=== PATIENT | male | born 1950 | race Caucasian/White ===

== ENCOUNTER 2024-10-08 22:32 | Emergency (ER) | payer MEDICARE, SELFPAY ==
[2024-10-08 22:32] VITALS: BP 137/72; PULSE 76; RESP 19; TEMP 36.7; O2SAT 97; BMI 25.7
--- NOTE | 2024-10-08 22:38 | EKG12_ITS ---
Test Reason : CP Blood Pressure : */* mmHG Vent. Rate : 75 BPM Atrial Rate : 60 BPM P-R Int : 204 ms QRS Dur : 56 ms QT Int : 394 ms P-R-T Axes : 7 -9 -11 degrees QTcB Int : 439 ms Sinus rhythm with frequent Premature ventricular complexes Inferior infarct , age undetermined Abnormal ECG Confirmed by RACHAEL ORANTES, FREDERICK ([id number]), acquisition editor CLAIRE HAWKINS ([id number]) on 10/10/2024 9:20:53 AM Referred By: LORENA Confirmed By: FREDERICK CANO MD
--- NOTE | 2024-10-08 22:39 | ED.VIS.CHEST ---
HPI History of Present Illness Chief Complaint: Chest Pain Informant: patient, family and EMS Narrative Narrative: 74-year-old male states he was sitting playing cards tonight about 1.5 hours or less prior to arrival started having squeezing left-sided lower chest discomfort. He and family state he probably had it for 15 minutes or so before he even said anything. It was constant nonpleuritic no associated symptoms. Never had this before. 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 He is on warfarin for that. He is not sure why he is on warfarin and not a newer medication, but he has never had a mechanical valve/heart surgery. EMS gave him aspirin 324 mg and 2 nitroglycerin and as a result of this, his pain is resolved. States he feels better now. [facility] Medical History HTN (hypertension) Afib Home Medications ?Medication ?Instructions ?Recorded ?Last Taken ?Type ascorbic acid (vitamin C) 500 mg 500 mg PO BID 10/08/24 Unknown History capsule diltiazem HCl 120 mg 120 mg PO DAILY 10/08/24 Unknown History capsule,extended release 12 hr (Cardizem SR) ergocalciferol (vitamin D2) 1,250 1,250 mcg PO Q14D 10/08/24 Unknown History mcg (50,000 unit) capsule (Vitamin D2) lovastatin 20 mg tablet 20 mg PO DAILY 10/08/24 Unknown History metoprolol succinate 50 mg 100 mg PO QDAY 10/08/24 Unknown History tablet,extended release 24 hr multivitamin (Daily Multi-Vitamin 2 tab PO DAILY 10/08/24 Unknown History tablet) nitroglycerin 0.4 mg sublingual 0.4 mg sublingual Q5M 10/08/24 Unknown History tablet warfarin 5 mg tablet 10 mg PO .COMPLEX 10/08/24 Unknown History Allergy/AdvReac Type Severity Reaction Status Date / Time No Known Allergies Allergy Verified 10/08/24 22:35 Social History Smoking Status: Former smoker ROS ROS ED Constitutional Constitutional ED: Denies chills or fever(s) Eyes Eyes: Denies change in vision or diplopia ENT ENT ED: Denies rhinorrhea or sore throat Cardiovascular Cardiovascular: Reports chest pain; Denies lightheadedness, palpitations or syncope Respiratory/Chest Respiratory/Chest: Denies cough or dyspnea Gastrointestinal Gastrointestinal: Denies abdominal pain, diarrhea, nausea or vomiting Genitourinary Genitourinary ED: Denies dysuria or hematuria Musculoskeletal Musculoskeletal: Denies back pain or neck pain Integumentary Denies abscess or rash Neurologic Neurologic: Denies headache(s), paresthesias or weakness Psychiatric Psychiatric: Denies anxiety or suicidal thoughts EXAM Physical Exam Const Vital Signs: 10/08/24 22:32 10/08/24 22:38 10/08/24 22:39 Temperature 98.1 F Temperature Source Oral Pulse Rate 76 Respiratory Rate 19 H Respiratory Pattern Normal Blood Pressure 137/72 H Blood Pressure Mean 93 Pulse Ox 97 Oxygen Delivery Method Room Air Room Air 10/08/24 22:47 10/08/24 23:32 10/08/24 23:55 Temperature Temperature Source Pulse Rate 68 66 67 Respiratory Rate 16 16 Respiratory Pattern Blood Pressure 137/72 H 120/61 121/61 H Blood Pressure Mean 80 81 Pulse Ox 97 97 Oxygen Delivery Method Room Air Room Air 10/09/24 01:00 Temperature Temperature Source Pulse Rate 68 Respiratory Rate 16 Respiratory Pattern Blood Pressure 141/54 H Blood Pressure Mean 83 Pulse Ox 98 Oxygen Delivery Method Room Air Positive well nourished and well developed General Appearance ED: well developed and NAD HEENT Reports moist mucous membranes normocephalic and atraumatic Eyes PERRL and EOMs intact bilaterally Neck full ROM and supple Chest Wall inspection of chest normal and palpation of chest normal Resp normal respiratory effort and clear to auscultation bilaterally Cardio regular rate, regular rhythm and no murmurs Peripheral Pulses: pulses 2+ throughout and radial pulses present bilateral 2+ GI non-tender and non-distended Auscultation: normoactive bowel sounds Palpation: soft Back/Spine no CVA tenderness General Back: other FROM Extremity normal to inspection General Extremety ED: Negative for edema, pulses abnormal or tenderness General Extremity: Negative for edema or pulses abnormal Neuro oriented x3, CN's II-XII intact bilaterally and no sensory deficits noted Sensorium / Orientation: awake and alert Motor Exam: strength 5/5 throughout Psych mental status grossly normal Skin no rashes or lesions noted and no wounds Heart Score History: Moderately Suspicious ECG: Nonspecific Repolarization Age: >/= 65 years Risk Factors: 1 or 2 Risk Factors Troponin: </= Normal Limit Score: 5 MDM MDM MDM Narrative Medical decision making narrative: Patient asymptomatic and vital signs normal. Half-inch of nitroglycerin paste was placed on his chest, he remained chest pain-free throughout his ED visit. Initial set of enzymes are normal as EKG shows nothing acute. 1 view chest x-ray on my interpretation negative for anything acute. Radiology in agreement. There are frequent PVCs, interfering with some of the detailed EKG interpretation, there may be some inverted T waves in 2 out of the 3 inferior leads, and there is no old EKG for comparison. Patient states he has not had a stress test in a long time. The second troponin came back at 16 for a delta of 2, both of these are within normal limits and the delta is within normal limits as well. Given this, less likely acute coronary syndrome. I offered admission if the patient would like to stay for more urgent stress testing he declines and will follow-up with his doctor which I think is reasonable. Lab Data Attestation: I reviewed the patient's lab results. Labs: Laboratory Results - last 24 hr 10/08/24 10/09/24 22:45 00:45 WBC 7.8 RBC 4.30 L Hgb 12.7 L Hct 37.8 L MCV 87.9 MCH 29.5 MCHC 33.6 RDW Std Deviation 44.9 H RDW Coeff of Linda 13.9 Plt Count 161 MPV 10.7 Immature Gran % (Auto) 0.100 Neut % (Auto) 46.9 L Lymph % (Auto) 35.2 [place] % (Auto) 14.1 H Eos % (Auto) 3.1 Baso % (Auto) 0.6 Absolute Neuts (auto) 3.7 Absolute Lymphs (auto) 2.75 Nucleated RBC % 0 PT 24.3 H INR 2.1 Sodium 135 Potassium 4.1 Chloride 101 Carbon Dioxide 22.4 Anion Gap 11 BUN 39 H Creatinine 1.12 Estim Creat Clear Calc 65.24 Est GFR (MDRD) Non-Af 68 BUN/Creatinine Ratio 34.7 H Glucose 228 H Calcium 9.1 Troponin T High Sens 14 Troponin T Hi Sens 2 Hr 16 Radiography Diagnostic Testing: Clinical Impression(s) from Imaging Studies Chest X-Ray 10/08/24 23:04 IMPRESSION: No Acute Findings. [facility] Rhythm Strip Rhythm Strip: Sinus Rhythm Rate: 75 Ectopy: PVC(s) EKG Initial EKG: Attestation: I personally reviewed and interpreted this EKG as follows: Interpretation: Sinus Rhythm, No Acute Injury Pattern and Inverted T-Waves (III, aVF) Comments: frequent PVCs Prior EKG tracings: not available for review Prior: No Prior Discharge Plan Triage Chief Complaint: Chest Pain ED Provider: Mark Hodgson Dx/Rx/DC Orders Clinical Impression: Left-sided chest pain, Warfarin-induced coagulopathy Instructions: ED Chest Pain, Uncertain Cause Prescriptions: No Action warfarin 5 mg tablet 10 mg PO .COMPLEX Rx Instructions: 10 mg orally SUTUTH; 7.5MG MOWEFRSA diltiazem HCl [Cardizem SR] 120 mg capsule,extended release 12 hr 120 mg PO DAILY lovastatin 20 mg tablet 20 mg PO DAILY metoprolol succinate 50 mg tablet extended release 24 hr 100 mg PO QDAY ascorbic acid (vitamin C) 500 mg capsule 500 mg PO BID ergocalciferol (vitamin D2) [Vitamin D2] 1,250 mcg (50,000 unit) capsule 1,250 mcg PO Q14D multivitamin [Daily Multi-Vitamin] Tablet 2 tab PO DAILY nitroglycerin 0.4 mg tablet, sublingual 0.4 mg sublingual Q5M Rx Instructions: do not exceed 3 doses per episode Primary Care Provider: LISS NELSON Referrals: [facility] Doctor,Out of [Non-Staff] - As soon as possible Print Language: Nepali Disposition Disposition: Home, Self Care
[2024-10-08 22:47] VITALS: BP 137/72; PULSE 68
[2024-10-08] MEDS: Nitroglycerin Oint 1 INCH PACKET TD (22:47)
[2024-10-08 22:55] LABS: Absolute Lymphocyte Count 2.75 X10^3/uL (0.83-4.51); Absolute Neutrophil Count 3.7 X10^3/uL (2.0-7.7); Basophil# 0.05 X10^3/uL; Basophil% 0.6 % (0-1); Eosinophil# 0.24 X10^3/uL; Eosinophils% 3.1 % (0-5); Hematocrit 37.8 % (40-54); Hemoglobin 12.7 g/dL (13.0-16.5); Lymphocyte # 2.75 X10^3/ul (0.83-4.51); Lymphocyte % 35.2 % (19-41); Mean Corp Hgb Conc 33.6 g/dL (32-36); Mean Corpuscular Hgb 29.5 pg (27.0-32.0); Mean Corpuscular Volume 87.9 fL (80-94); Mean Platelet Vol. 10.7 fl (6.2-12.0); Monocyte% 14.1 % (0-10); NRBC Flagged by Analyzer 0 % (0-5); Neutrophil # 3.66 X10^3/uL (2.7-7.7); Neutrophil % 46.9 % (47-70); Platelet Count 161 K/mm3 (150-450); RBC Distribution Width CV 13.9 % (11.6-14.6); RBC Distribution Width SD 44.9 fl (35.1-43.9); White Blood Count 7.8 K/mm3 (4.4-11.0)
[2024-10-08 23:01] LABS: International Normalized Ratio 2.1; Prothrombin Time (Protime)PT. 24.3 SECONDS (11.7-14.9)
--- NOTE | 2024-10-08 23:04 | RAD_ITS ---
PROCEDURE: CHEST 1 VIEW (PORTABLE) 10/08/2024 REASON FOR EXAM: CHEST PAIN TECHNIQUE: Frontal view of the chest. COMPARISON: None FINDINGS: Hardware: None Heart: The heart size is normal. Lungs: No focal consolidation. No pneumothorax. No pleural effusion. Bones: The bones are unremarkable. Other: RAD/Chest 1 View (Portable) IMPRESSION: No Acute Findings. Reading Location: [facility]
[2024-10-08 23:32] VITALS: BP 120/61; PULSE 66; RESP 16; O2SAT 97
[2024-10-08 23:37] LABS: Anion Gap 11 (5-15); BUN 39 mg/dL (4-19); BUN/Creat Ratio 34.7 RATIO (10-20); Calcium,Total 9.1 mg/dL (7.6-11.0); Carbon Dioxide 22.4 mmol/L (21.0-32.0); Chloride 101 mmol/L (98-108); Creatinine, Serum 1.12 mg/dL (0.70-1.20); EST Glomerular Filtration Rate 68 (>60); Estimated Creatinine Clearance 65.24 ml/min (50-250); Glucose 228 mg/dL (70-99); Potassium 4.1 mmol/L (3.3-5.1); Sodium Level 135 mmol/L (133-145); Troponin T High Sensitivity 14 ng/L (<=22)
[2024-10-08 23:55] VITALS: BP 121/61; PULSE 67; RESP 16; O2SAT 97
[2024-10-09 01:00] VITALS: BP 141/54; PULSE 68; RESP 16; O2SAT 98
[2024-10-09 01:06] LABS: Troponin T High Sens 2 HR 16 ng/L (<=22)
[2024-10-09 01:26] VITALS: BP 141/54; PULSE 54; RESP 16; TEMP 36.7; O2SAT 96
== END 2024-10-09 01:28 | disposition home or self-care (01) ==
PROVIDERS: Emergency Provider Emergency Medicine; Visit Provider Emergency Medicine
DX: R07.9 Chest pain, unspecified (principal); I48.91 Unspecified atrial fibrillation; I10 Essential (primary) hypertension; Z79.01 Long term (current) use of anticoagulants; Z79.899 Other long term (current) drug therapy; Z87.891 Personal history of nicotine dependence
CPT/HCPCS: 71045; 80048; 84484; 85025; 85610; 93005; 99285; A4216